=== PATIENT | female | born 1970 | race American Indian/Alaskan Native ===

== ENCOUNTER 2017-11-04 20:49 | Emergency (ER) | payer SELFPAY | END 2017-11-05 01:14 | disposition left against medical advice (07) | LOC: ED 20:49 | DX: N89.8 Other specified noninflammatory disorders of vagina (principal); Z53.21 Procedure and treatment not carried out due to patient leaving prior to being seen by health care provider ==

== ENCOUNTER 2017-11-07 11:52 | Emergency (ER) | payer OTHER ==
[2017-11-07 12:56] LABS: Bacteria,Urine 1+ /HPF (Negative); Bilirubin,Urine NEG (Negative); Blood,Urine SM (Negative); Color,Urine Yellow (Yellow); Mucus,Urine FEW /HPF; Protein,Urine <15 mg/dL mg/dL (Negative)
[2017-11-07 14:44] LABS: HCG Qualitative,Urine Negative (Negative)
[2017-11-07] MEDS ORDERED: PERCOCET 5/325 PO ONE (14:46)
[2017-11-07] MEDS ORDERED: TORADOL IM ONE (14:46)
[2017-11-07] MEDS ORDERED: ZOFRAN ODT PO ONE (14:46)
--- NOTE | 2017-11-07 14:49 | Emergency Department Report ---
Blank Doc - Documentation Documentation: 46-year-old female presents to the hospital complaining of lower abdominal pain since last week. Pain is intermittent, sharp and dull. Occurs in the left lower quadrant and right lower quadrant. "low grade" fever reported. Patient denies dysuria but states she has vaginal discharge with an odor. Positive nausea with one episode of vomiting. Patient had her menstrual cycle October 24 after being amenorrheic for 8 years status post uterine ablation. She has an appointment in 2 days with her [employer] doctor but could not wait since over-the- counter pain medication and leftover hydrocodone management no longer helping. Focused exam Tenderness to the left lower quadrant and right lower quadrant. No suprapubic tenderness. No rebound or guarding Lungs clear to auscultation Heart regular rate and rhythm Orders UA reviewed, urine added CBC, CMP Ultrasound transvaginal/pelvic Pending pelvic exam Wet prep and GC chlamydia ordered
[2017-11-07 15:34] LABS: Basophils % (Auto) 0.4 % (0.0-1.8); Eosinophils # (Auto) 0.1 K/mm3 (0.0-0.4); Eosinophils % (Auto) 1.5 % (0.0-4.3); Hematocrit 41.8 % (30.3-42.9); Hemoglobin 13.5 gm/dl (10.1-14.3); Lymphocytes # (Auto) 2.7 K/mm3 (1.2-5.4); Lymphocytes % (Auto) 37.4 % (13.4-35.0); Mean Corpuscular HGB Conc 32 % (30-34); Mean Corpuscular Hemoglobin 32 pg (28-32); Mean Corpuscular Volume 99 fl (79-97); Monocytes # (Auto) 0.5 K/mm3 (0.0-0.8); Monocytes % (Auto) 6.7 % (0.0-7.3); Platelet Count 279 K/mm3 (140-440); Red Blood Count 4.21 M/mm3 (3.65-5.03); Red Cell Distribution Width 12.4 % (13.2-15.2)
--- NOTE | 2017-11-07 15:41 | Ultrasound Report ---
ULTRASOUND PELVIS DUPLEX DOPPLER COMPLETE - TRANSABDOMINAL AND TRANSVAGINAL: INDICATION: Vaginal bleeding. 8 years post uterine ablation. Pelvic pain for one week. COMPARISON: None similar. FINDINGS: Transabdominal and transvaginal pelvic sonography with spectral Doppler somewhat technically limited due to patient's body habitus and bowel gas, though suggests a 9.9 x 4.4 x 5.4 cm anteverted uterus. Two small nabothian cysts, measuring up to 0.7 cm. A small nonspecific elongated 0.9 x 0.4 cm cystic focus along the lower endometrial canal as on endovaginal image 10. Endometrial thickness estimated at 0.5 cm. No significant free fluid. Right ovary is 2.3 x 1.5 x 1.5 cm. Left ovary is 2.7 x 1.8 x 1.2 cm with a 1.5 cm nonspecific intrinsic complex/possibly hemorrhagic focus as on endovaginal image 33. Preserved bilateral ovarian blood flow. CONCLUSION: No significant pelvic sonographic abnormality with few nonspecific findings, as described. Thank you for the opportunity to participate in this patient's care.
--- NOTE | 2017-11-07 15:50 | Emergency Department Report ---
ED Abdominal Pain HPI - General Chief Complaint: Urogenital-Female Stated Complaint: ABDOMINAL PAIN Time Seen by Provider: 11/07/17 14:38 Source: patient Mode of arrival: Ambulatory Limitations: No Limitations - History of Present Illness Initial Comments: 46-year-old female presents to the hospital complaining of lower abdominal pain since last week. Pain is intermittent, sharp and dull. Occurs in the left lower quadrant and right lower quadrant. "low grade" fever reported. Patient denies dysuria but states she has vaginal discharge with an odor. Positive nausea with one episode of vomiting. Patient had her menstrual cycle October 24 after being amenorrheic for 8 years status post uterine ablation. She has an appointment in 2 days with her [employer] doctor but could not wait since over-the- counter pain medication and leftover hydrocodone management no longer helping. MD Complaint: abdominal pain -: days(s) (3) Location: suprapubic Severity scale (0 -10): 9 - Related Data Home Medications Medication Instructions Recorded Confirmed Last Taken Topamax 100 mg PO DAILY 06/06/17 06/06/17 Unknown Previous Rx's Medication Instructions Recorded Last Taken Type metroNIDAZOLE [Metronidazole] 500 mg PO TID #21 tablet 11/07/17 Unknown Rx Allergies Allergy/AdvReac Type Severity Reaction Status Date / Time No Known Allergies Allergy Unverified 01/02/15 15:41 ED Review of Systems ROS: Stated complaint: ABDOMINAL PAIN Other details as noted in HPI ED Past Medical Hx - Past Medical History Hx Hypertension: Yes Hx CVA: Yes Hx Congestive Heart Failure: No Hx Diabetes: (FAMILY) Hx Asthma: No Hx COPD: No Hx HIV: No Additional medical history: "tachycardia - Surgical History Additional Surgical History: Uterine Ablation,TUBILIGATION,KNEE,BACK - Social History Smoking Status: Never Smoker Substance Use Type: None - Medications Home Medications: Home Medications Medication Instructions Recorded Confirmed Last Taken Type Topamax 100 mg PO DAILY 06/06/17 06/06/17 Unknown History metroNIDAZOLE [Metronidazole] 500 mg PO TID #21 tablet 11/07/17 Unknown Rx ED Physical Exam - General Limitations: No Limitations ED Course Vital Signs 11/07/17 12:06 Temperature 97.9 F Pulse Rate 81 Respiratory 18 Rate Blood Pressure 151/94 O2 Sat by Pulse 99 Oximetry ED Medical Decision Making - Lab Data Result diagrams: 11/07/17 15:27 11/07/17 15:27 - Radiology Data Radiology results: report reviewed, image reviewed CONCLUSION: No significant pelvic sonographic abnormality with few nonspecific findings, as described. Thank you for the opportunity to participate in this patient's care. Transcribed By: RS Dictated By: JANINE MICHELLE MD Electronically Authenticated By: JANINE MICHELLE MD Signed Date/Time: 11/07/17 7546 - Medical Decision Making Patient's been evaluated by this provider as well as Dr. Jansen. Transvaginal ultrasound ordered and complete with no significant abnormalities. Urinalysis urine wet prep and gonorrhea chlamydia sent out. Examination showed copious amount of vaginal discharge with amine odor. Critical care attestation.: If time is entered above; I have spent that time in minutes in the direct care of this critically ill patient, excluding procedure time. ED Disposition Clinical Impression: BV (bacterial vaginosis) Disposition: DC-01 TO HOME OR SELFCARE Is pt being admited?: No Does the pt Need Aspirin: No Condition: Stable Instructions: Bacterial Vaginosis (ED) Additional Instructions: Please complete antibiotics as prescribed. Please do not consume any alcohol beverages while taking medication. Please follow up with her primary care provider or your [employer] provider. Prescriptions: metroNIDAZOLE [Metronidazole] 500 mg PO TID #21 tablet Referrals: PRIMARY CAREMD [Primary Care Provider] - 3-5 Days Forms: STI Treatment and Prevention
[2017-11-07 15:53] LABS: Alanine Aminotransferase 15 units/L (7-56); Albumin 4.2 g/dL (3.9-5); BUN/Creatinine Ratio 11; Blood Urea Nitrogen 9 mg/dL (7-17); Calcium 8.5 mg/dL (8.4-10.2); Hemolysis Index 4
[2017-11-07 17:57] VITALS: BP 155/87
== END 2017-11-07 17:58 | disposition home or self-care (01) ==
LOC: ED 11:52
DX: N76.0 Acute vaginitis (principal); B96.89 Other specified bacterial agents as the cause of diseases classified elsewhere; I10 Essential (primary) hypertension; Z98.51 Tubal ligation status; Z86.73 Personal history of transient ischemic attack (TIA), and cerebral infarction without residual deficits
CPT/HCPCS: 36415; 76830; 80053; 81001; 81025; 85025; 87210; 87591; 93975; 96372; 99284; J1885; Q0162

== ENCOUNTER 2018-04-24 21:01 | Emergency (ER) | payer OTHER ==
[2018-04-24 21:36] VITALS: BP 140/94
[2018-04-24 23:12] LABS: Bacteria,Urine 1+ /HPF (Negative); Bilirubin,Urine NEG (Negative); Blood,Urine SM (Negative); Color,Urine Amber (Yellow); Mucus,Urine 1+ /HPF
[2018-04-24 23:15] LABS: WBC,Urine > 182.0 /HPF (0.0-6.0)
[2018-04-24] MEDS ORDERED: XYLOCAINE 1% MPF 5 mL INFILTRATI ONE (23:21)
[2018-04-24] MEDS ORDERED: ROCEPHIN IM ONE (23:21)
--- NOTE | 2018-04-24 23:34 | Emergency Department Report ---
ED Female HPI - General Chief complaint: Urogenital-Female Stated complaint: UTI Time Seen by Provider: 04/24/18 22:55 Source: patient Mode of arrival: Ambulatory Limitations: No Limitations - History of Present Illness Initial comments: This is a 47-year-old female nontoxic, well nourished in appearance, no acute signs of distress presents to the ED with c/o of vaginal discharge, irritation and dysuria. Patient stated she was treated for UTI with Bactrim and symptoms resolved and now returned. Patient denies any vaginal pain or swelling. Patient denies any vaginal ulcers or lesions. Patient stated she is not concerned about STD. Patient denies any nausea, vomiting, chest pain, shortness of breathe, fever, chills, headache, back pain, numbness, tingling, stiff neck. Patient denies any back pain. Patient denies any abdominal or pelvic pain. Patient denies any urinary symptoms. Patient denies any allergies. PMH includes CVA and HTN. MD Complaint: vaginal discharge, dysuria -: days(s) (2) Severity: mild Improves with: none Worsens with: none Are you Now?: No Associated Symptoms: vaginal discharge, dysuria. denies: vaginal bleeding, abdominal pain, nausea/vomiting, fever/chills, headaches, loss of appetite, hematuria, rash, seizure, shortness of breath, syncope, weakness - Related Data Home Medications Medication Instructions Recorded Confirmed Last Taken Topamax 100 mg PO DAILY 06/06/17 06/06/17 Unknown Previous Rx's Medication Instructions Recorded Last Taken Type metroNIDAZOLE [Metronidazole] 500 mg PO TID #21 tablet 11/07/17 Unknown Rx Nitrofurantoin [place]/M-Cryst 100 mg PO Q12HR #14 capsule 04/25/18 Unknown Rx [Macrobid CAP] Allergies Allergy/AdvReac Type Severity Reaction Status Date / Time No Known Allergies Allergy Unverified 01/02/15 15:41 ED Review of Systems ROS: Stated complaint: UTI Other details as noted in HPI Constitutional: denies: chills, fever Eyes: denies: eye pain, eye discharge, vision change ENT: denies: ear pain, throat pain Respiratory: denies: cough, shortness of breath, wheezing Cardiovascular: denies: chest pain, palpitations Endocrine: no symptoms reported Gastrointestinal: denies: abdominal pain, nausea, diarrhea Genitourinary: dysuria, discharge. denies: urgency, frequency, hematuria Musculoskeletal: denies: back pain, joint swelling, arthralgia Skin: denies: rash, lesions Neurological: denies: headache, weakness, paresthesias Psychiatric: denies: anxiety, depression Hematological/Lymphatic: denies: easy bleeding, easy bruising ED Past Medical Hx - Past Medical History Hx Hypertension: Yes Hx CVA: Yes Hx Congestive Heart Failure: No Hx Diabetes: (FAMILY) Hx Asthma: No Hx COPD: No Hx HIV: No Additional medical history: "tachycardia - Surgical History Additional Surgical History: Uterine Ablation,TUBILIGATION,KNEE,BACK - Social History Smoking Status: Never Smoker Substance Use Type: None - Medications Home Medications: Home Medications Medication Instructions Recorded Confirmed Last Taken Type Topamax 100 mg PO DAILY 06/06/17 06/06/17 Unknown History metroNIDAZOLE [Metronidazole] 500 mg PO TID #21 tablet 11/07/17 Unknown Rx Nitrofurantoin [place]/M-Cryst 100 mg PO Q12HR #14 capsule 04/25/18 Unknown Rx [Macrobid CAP] ED Physical Exam - General Limitations: No Limitations General appearance: alert, in no apparent distress - Head Head exam: Present: atraumatic, normocephalic - Eye Eye exam: Present: normal appearance - ENT ENT exam: Present: normal exam, mucous membranes moist - Neck Neck exam: Present: normal inspection, full ROM. Absent: tenderness, meningismus, lymphadenopathy - Respiratory Respiratory exam: Present: normal lung sounds bilaterally. Absent: respiratory distress, wheezes, rales, rhonchi, stridor, chest wall tenderness, accessory muscle use, decreased breath sounds, prolonged expiratory - Cardiovascular Cardiovascular Exam: Present: regular rate, normal rhythm, normal heart sounds. Absent: irregular rhythm, systolic murmur, diastolic murmur, rubs, gallop - GI/Abdominal GI/Abdominal exam: Present: soft, normal bowel sounds. Absent: distended, tenderness, guarding, rebound, rigid, diminished bowel sounds - External exam: Present: normal external exam, other (ticket taker ferryboat RN present during exam). Absent: erythema, swelling, lesions, lacerations, ecchymosis, bleeding Speculum exam: Present: normal speculum exam, cervical discharge, other ( ticket taker ferryboat RN present during exam). Absent: erythema, vaginal discharge, vaginal bleeding, foreign body, tissue, laceration Bi-manual exam: Present: normal bi-manual exam, other (ticket taker ferryboat RN present during exam). Absent: cervical motion tendernes, adnexal tenderness, adnexal mass, uterine enlargement, uterine tenderness - Extremities Exam Extremities exam: Present: normal inspection, full ROM, normal capillary refill - Back Exam Back exam: Present: normal inspection, full ROM. Absent: tenderness, CVA tenderness (R), CVA tenderness (L), muscle spasm, paraspinal tenderness, vertebral tenderness, rash noted - Neurological Exam Neurological exam: Present: alert, oriented X3, normal gait - Psychiatric Psychiatric exam: Present: normal affect, normal mood - Skin Skin exam: Present: warm, dry, intact, normal color. Absent: rash ED Course Vital Signs 04/24/18 04/24/18 21:06 21:33 Temperature 98.8 F 98.8 F Pulse Rate 91 H 91 H Respiratory 20 18 Rate Blood Pressure 140/94 140/94 O2 Sat by Pulse 100 99 Oximetry ED Medical Decision Making - Medical Decision Making This is a 47-year-old female that presents with UTI. Patient is stable was examined by me. There is no abdominal tenderness. No pelvic pain. UA obtained. Wet prep obtained. Urine culture order and pending. Patient wanted treatment so patient received 1 g Rocephin. Patient was instructed to Follow- up with a primary care doctor in 3-5 days or if symptoms worsen and continue return to emergency room as soon as possible. At time of discharge, the patient does not seem toxic or ill in appearance. No acute signs of distress noted. Patient agrees to discharge treatment plan of care. No further questions noted by the patient. Critical care attestation.: If time is entered above; I have spent that time in minutes in the direct care of this critically ill patient, excluding procedure time. ED Disposition Clinical Impression: UTI (urinary tract infection) Qualifiers: Urinary tract infection type: site unspecified Hematuria presence: without hematuria Qualified Code(s): N39.0 - Urinary tract infection, site not specified Disposition: TO HOME OR SELFCARE Is pt being admited?: No Does the pt Need Aspirin: No Condition: Stable Instructions: Urinary Tract Infection in Women (ED) Additional Instructions: Follow-up with a primary care doctor in 3-5 days or if symptoms worsen and continue return to emergency room as soon as possible. Prescriptions: Nitrofurantoin [place]/M-Cryst [Macrobid CAP] 100 mg PO Q12HR #14 capsule Referrals: PRIMARY CAREMD [Primary Care Provider] - 3-5 Days WYATT TRAORE MD [Staff Physician] - 3-5 Days [facility] [Outside] - 3-5 Days [facility] [Outside] - 3-5 Days Forms: Work/School Release Form(ED)
== END 2018-04-25 00:55 | disposition home or self-care (01) ==
LOC: ED 21:01
DX: N39.0 Urinary tract infection, site not specified (principal); I10 Essential (primary) hypertension; Z98.51 Tubal ligation status
CPT/HCPCS: 81001; 87086; 87210; 96372; 99284; J0696

== ENCOUNTER 2018-08-08 17:40 | Emergency (ER) | payer OTHER ==
[2018-08-08 17:52] VITALS: BP 148/95
[2018-08-08 18:42] LABS: Hematocrit 42.3 % (30.3-42.9); Mean Corpuscular HGB Conc 33 % (30-34); Mean Corpuscular Volume 100 fl (79-97); Platelet Count 294 K/mm3 (140-440); Red Blood Count 4.22 M/mm3 (3.65-5.03); Red Cell Distribution Width 12.4 % (13.2-15.2)
[2018-08-08 18:44] LABS: BUN/Creatinine Ratio 13; Blood Urea Nitrogen 13 mg/dL (7-17); Calcium 9.1 mg/dL (8.4-10.2); Hemolysis Index 16
--- NOTE | 2018-08-08 20:48 | Emergency Department Report ---
<JEOVANY BAUM - Last Filed: 08/08/18 22:50> ED Female HPI - General Chief complaint: Vaginal Bleeding Stated complaint: SOB/VAGINAL BLEEDING/PAIN Source: patient Mode of arrival: Ambulatory Limitations: No Limitations - History of Present Illness Initial comments: This is a 47 year-old female who presents with heavy vaginal bleeding and abdominal pain since 12:00 today while at work. Past medical history of TIAs, hypertension. Patient states she had a uterine ablation several years ago and has not had a period since. One bleeding initially started she was passing large amounts of clots and bright red blood. Patient reports blood is currently dark in color. She also reports sharp pain to the left flank, abdominal swelling, and nausea. Patient states the pain was more frequent while at work and landed 1 minute and Haldol increased in intensity. She denies chest pain, shortness of breath, dizziness, frequency, urgency, or dysuria. MD Complaint: vaginal bleeding, other (abdominal pain) -: This morning Time: 12:00 Location: other (left flank) Radiation: non-radiating Severity: moderate Severity scale (0 -10): 4 Quality: sharp Consistency: intermittent Improves with: none Worsens with: none Are you Now?: No Last Menstrual Period: 08/01/07 EDC: 05/07/08 Associated Symptoms: vaginal bleeding, abdominal pain, nausea/vomiting. denies: vaginal discharge, fever/chills, headaches, loss of appetite, dysuria, hematuria, rash, seizure, shortness of breath, syncope, weakness - Related Data Sexually active: Yes Home Medications Medication Instructions Recorded Confirmed Last Taken Topamax 100 mg PO DAILY 06/06/17 06/06/17 Unknown Previous Rx's Medication Instructions Recorded Last Taken Type metroNIDAZOLE [Metronidazole] 500 mg PO TID #21 tablet 11/07/17 Unknown Rx Nitrofurantoin [place]/M-Cryst 100 mg PO Q12HR #14 capsule 04/25/18 Unknown Rx [Macrobid CAP] traMADol [Ultram] 50 mg PO Q6HR PRN #9 tablet 08/09/18 Unknown Rx Allergies Allergy/AdvReac Type Severity Reaction Status Date / Time No Known Allergies Allergy Unverified 01/02/15 15:41 ED Review of Systems Constitutional: denies: chills, fever Respiratory: denies: cough, shortness of breath, wheezing Cardiovascular: denies: chest pain, palpitations Gastrointestinal: abdominal pain (Left flank pain), nausea. denies: vomiting, diarrhea, constipation, hematemesis, melena, hematochezia, other Genitourinary: abnormal menses. denies: urgency, dysuria, discharge Neurological: denies: headache, weakness, paresthesias Psychiatric: denies: anxiety, depression ED Past Medical Hx - Past Medical History Previous Medical History?: Yes Hx Hypertension: Yes Hx CVA: Yes (TIA) Hx Congestive Heart Failure: No Hx Diabetes: (FAMILY) Hx Asthma: No Hx COPD: No Hx HIV: No Additional medical history: "tachycardia" - Surgical History Past Surgical History?: Yes Additional Surgical History: Uterine Ablation,TUBILIGATION,KNEE,BACK - Social History Smoking Status: Never Smoker Substance Use Type: None - Medications Home Medications: Home Medications Medication Instructions Recorded Confirmed Last Taken Type Topamax 100 mg PO DAILY 06/06/17 06/06/17 Unknown History metroNIDAZOLE [Metronidazole] 500 mg PO TID #21 tablet 11/07/17 Unknown Rx Nitrofurantoin [place]/M-Cryst 100 mg PO Q12HR #14 capsule 04/25/18 Unknown Rx [Macrobid CAP] traMADol [Ultram] 50 mg PO Q6HR PRN #9 tablet 08/09/18 Unknown Rx ED Physical Exam - General Limitations: No Limitations General appearance: alert, in no apparent distress, obese - Respiratory Respiratory exam: Present: normal lung sounds bilaterally. Absent: respiratory distress - Cardiovascular Cardiovascular Exam: Present: regular rate, normal rhythm. Absent: systolic murmur, diastolic murmur, rubs, gallop - GI/Abdominal GI/Abdominal exam: Present: soft, tenderness (left upper quadrant tenderness and left lower quadrant tenderness), normal bowel sounds. Absent: distended, guarding, rebound, rigid, organomegaly, mass - Neurological Exam Neurological exam: Present: alert, oriented X3 - Psychiatric Psychiatric exam: Present: normal affect, normal mood - Skin Skin exam: Present: warm, dry, intact, normal color. Absent: rash ED Medical Decision Making - Lab Data Result diagrams: 08/08/18 18:15 08/08/18 18:15 - Medical Decision Making Patient was examined by me. Vitals are normal and patient is in no acute distress. Given Tylenol 1000 mg by mouth once vomiting. Obtained labs and CT of abdomen and pelvis. Urinalysis and CT pending. Chart signed to Leno LIMA S. ED Disposition Clinical Impression: Dysmenorrhea Abdominal pain Qualifiers: Abdominal location: unspecified location Qualified Code(s): R10.9 - Unspecified abdominal pain Disposition: TO HOME OR SELFCARE Condition: Stable Instructions: Dysmenorrhea (ED), Abdominal Pain (ED) Prescriptions: traMADol [Ultram] 50 mg PO Q6HR PRN #9 tablet PRN Reason: Pain Referrals: JOSE RAUL SOLIS, [Primary Care Provider] - 3-5 Days CLAUDIA MORAN MD [Staff Physician] - 3-5 Days Forms: Work/School Release Form(ED) <BLACK SANTIAGO - Last Filed: 08/09/18 00:59> ED Review of Systems ROS: Stated complaint: SOB/VAGINAL BLEEDING/PAIN Other details as noted in HPI ED Course Vital Signs 08/08/18 17:47 Temperature 97.5 F L Pulse Rate 89 Respiratory 18 Rate Blood Pressure 148/95 O2 Sat by Pulse 98 Oximetry ED Medical Decision Making - Lab Data Result diagrams: 08/08/18 18:15 08/08/18 18:15 Labs 08/08/18 08/08/18 08/08/18 18:15 18:15 Unknown WBC 7.7 RBC 4.22 Hgb 14.0 Hct 42.3 MCV 100 H MCH 33 H MCHC 33 RDW 12.4 L Plt Count 294 Sodium 142 Potassium 3.9 Chloride 101.9 Carbon Dioxide 28 Anion Gap 16 BUN 13 Creatinine 1.0 Estimated GFR > 60 BUN/Creatinine Ratio 13 Glucose 103 H Calcium 9.1 Urine Color Yellow Urine Turbidity Clear Urine pH 5.0 Ur Specific [place] 1.030 Urine Protein <15 mg/dl Urine Glucose (UA) Neg Urine Ketones Neg Urine Blood Mod Urine Nitrite Neg Urine Bilirubin Neg Urine Urobilinogen 4.0 Ur Leukocyte Esterase Neg Urine WBC (Auto) 1.0 Urine RBC (Auto) 7.0 U Epithel Cells (Auto) 9.0 Urine Mucus Few - Radiology Data Radiology results: report reviewed, image reviewed FINAL REPORT EXAM: CT ABDOMEN PELVIS WO CON HISTORY: left upper quadrant tenderness COMPARISON: None available. TECHNIQUE: Contiguous axial images were obtained. Additional sagittal and coronal reformatted images were obtained. FINDINGS: Mild linear atelectasis at the lung bases. Lap band ring is in place in expected position at the junction between the gastric cardia distal esophagus. Lap band tubing is intact. No calcified gallstones. Liver, spleen, pancreas and adrenal glands are grossly unremarkable. No nephrolithiasis or hydronephrosis. Aorta and IVC are normal in caliber. No distal ureteral or urinary bladder calculi. Uterus and ovaries are grossly unremarkable. No free fluid or lymphadenopathy in the pelvic cavity. Small to moderate amount of stool within the colon. The appendix is normal in caliber. Mild diverticulosis of left colon. No diverticulitis. Prior anterior fusion at the L4-L5 level. X stop devices in place at that level. Bony pelvis is grossly intact. Mild sclerosis along the SI joints which may relate to sequelae of prior sacroiliitis. IMPRESSION: No gross focal inflammatory changes of the abdomen and pelvis. Critical care attestation.: If time is entered above; I have spent that time in minutes in the direct care of this critically ill patient, excluding procedure time. ED Disposition Is pt being admited?: No Does the pt Need Aspirin: No
[2018-08-08] MEDS ORDERED: TYLENOL PO ONE (21:20)
[2018-08-08] MEDS ORDERED: TYLENOL ONE (21:20)
--- NOTE | 2018-08-09 00:21 | Cat Scan Report ---
FINAL REPORT EXAM: CT ABDOMEN PELVIS WO CON HISTORY: left upper quadrant tenderness COMPARISON: None available. TECHNIQUE: Contiguous axial images were obtained. Additional sagittal and coronal reformatted images were obtained. FINDINGS: Mild linear atelectasis at the lung bases. Lap band ring is in place in expected position at the junc tion between the gastric cardia distal esophagus. Lap band tubing is intact. No calcified gallstones. Liver, spleen, pancreas and adrenal glands are grossly unremarkable. No nephrolithiasis or hydroneph rosis. Aorta and IVC are normal in caliber. No distal ureteral or urinary bladder calculi. Uterus and ovaries are grossly unremarkable. No free f luid or lymphadenopathy in the pelvic cavity. Small to moderate amount of stool within the colon. The appendix is normal in caliber. Mild diverticu losis of left colon. No diverticulitis. Prior anterior fusion at the L4-L5 level. X stop devices in place at that level. Bony pelvis is gross ly intact. Mild sclerosis along the SI joints which may relate to sequelae of prior sacroiliitis. IMPRESSION: No gross focal inflammatory changes of the abdomen and pelvis.
[2018-08-09 00:49] LABS: Bilirubin,Urine NEG (Negative); Blood,Urine MOD (Negative); Color,Urine Yellow (Yellow); Mucus,Urine FEW /HPF; Protein,Urine <15 mg/dL mg/dL (Negative)
== END 2018-08-09 01:10 | disposition home or self-care (01) ==
LOC: ED 17:40
DX: R10.9 Unspecified abdominal pain (principal); R11.2 Nausea with vomiting, unspecified; N93.9 Abnormal uterine and vaginal bleeding, unspecified; Z86.73 Personal history of transient ischemic attack (TIA), and cerebral infarction without residual deficits; Z98.51 Tubal ligation status; Z79.899 Other long term (current) drug therapy
CPT/HCPCS: 36415; 74176; 80048; 81001; 85027; 93005; 93010